=== PATIENT | female | born 1960 | race Two or more races ===

== ENCOUNTER 2023-04-24 07:53 | Day surgery (SDC) | payer OTHER ==
[~2023-04-24] VITALS: Ht 162.6 cm; Wt 72.6 kg
[~2023-04-24 07:53] MED LIST: LOSARTAN-HCTZ1 EAC2 PO
== END 2023-04-24 18:45 | disposition home or self-care (01) ==
LOC: CIR.AMB 07:53
PROVIDERS: ATTEND Colon & Rectal Surgery
DX: K62.89 Other specified diseases of anus and rectum (principal); D12.9 Benign neoplasm of anus and anal canal; A63.0 Anogenital (venereal) warts; K92.1 Melena; I10 Essential (primary) hypertension